=== PATIENT | male | born 1960 | race Caucasian/White ===

== ENCOUNTER 2018-10-12 08:49 | Emergency (ER) | payer OTHER, SELFPAY ==
[2018-10-12] VITALS (14 sets, daily range): BP systolic 106–130; BP diastolic 65–99; PULSE 78–114; RESP 11–18; TEMP 36.6–36.8; O2SAT 92–98; BMI 32.9
--- NOTE | 2018-10-12 09:11 | ED.CHESTPAIN ---
HPI - Chest Pain General Chief Complaint: Chest Pain Stated Complaint: Pain in chest/back Time Seen by Provider: 10/12/18 09:10 Source: patient Mode of arrival: ambulatory Limitations: no limitations History of Present Illness HPI narrative: The patient is a 58-year-old male who presents with chest pain off and on for the last 4 days. It comes and goes radiates through to his back to between his scapulas. He notices it with exertion and rest. It lasts for 30 minutes at a time. He denies any dyspnea with exertion. He currently has no pain. He was seen evaluated by PCP earlier this week thought it might be acid reflux. Decided to treat for acid reflux he has no follow-up scheduled. He says it is not getting any better Related Data Home Medications Medication Instructions Recorded Confirmed aspirin [Aspirin Low Dose] PO QAM 10/12/18 Previous Rx's Medication Instructions Recorded atorvastatin 20 mg tablet 20 mg PO HS #90 tab 12/03/17 chlorthalidone 25 mg tablet 25 mg PO QDAY #90 tab 12/03/17 lisinopril 40 mg tablet 40 mg PO QAM #90 tab 12/03/17 Allergies Allergy/AdvReac Type Severity Reaction Status Date / Time amoxicillin [AMOXICILLIN] Allergy Intermediate RASH AND Verified 10/12/18 11:27 LIGHT HEADED Penicillins [PENICILLINS] Allergy Unknown Verified 10/12/18 11:27 Sulfa (Sulfonamide Allergy Unknown Verified 10/12/18 11:27 Antibiotics) [SULFA (SULFONAMIDE ANTIBIOTICS)] Review of Systems Review of Systems GENERAL: Denies chills, fatigue, malaise, fever, sweats, travel HEENT: Denies sinus pain, ear pain, sore throat, difficulty swallowing, neck pain RESPIRATORY: Denies dyspnea, cough, wheezing, hemoptysis, sputum. CARDIOVASCULAR: See HPI GASTROINTESTINAL: Denies nausea, vomiting, abdominal pain, diarrhea, constipation, melena. : Denies dysuria, frequency, incontinence, hematuria, urinary retention, flank pain. MUSCULOSKELETAL: Denies weakness, joint pain, or bony pain SKIN: No rash, no erythema, no pruritus NEUROLOGIC: Denies weakness, dizziness, headache, numbness, change in speech, confusion PSYCHIATRIC: No concerning psychosocial issues. 12 point review of systems is negative except for those stated above and HPI [facility] Medical History Hyperlipidemia (Acute) Hypertension (Acute) Family History (Updated 08/24/14 @ 00:00 by MOE Gonzalez) Father Age: 74 CAD (coronary artery disease) Hyperlipidemia Hypertension Sister Hypertension Hyperlipidemia Social History Smoking Status: Former smoker Family History Father Age: 74 CAD (coronary artery disease) Hyperlipidemia Hypertension Sister Hypertension Hyperlipidemia Social History Smoking Status: Former smoker Exam Initial Vital Signs Initial Vital Signs: Vital Signs Temperature 97.9 F 10/12/18 08:53 Pulse Rate 114 H 10/12/18 08:53 Respiratory Rate 15 10/12/18 08:53 Blood Pressure 129/91 H 10/12/18 08:53 Pulse Oximetry 94 10/12/18 08:53 GENERAL: Well-appearing, well-nourished and in no acute distress. HEENT: Head atraumatic,EOMI, pupils reactive, face symmetric, moist mucous membranes CARDIOVASCULAR: Regular rate and rhythm without murmurs, rubs or gallops. RESPIRATORY: Breath sounds equal bilaterally, no wheezes rales or rhonchi. ABDOMEN: Soft, nontender. Normoactive bowel sounds all 4 quadrants. No guarding or rebound. : No CVA tenderness EXTREMITIES: Normal range of motion, no clubbing or edema. Neurovascularly intact NEUROLOGICAL: Alert and oriented x4.Normal gait and speech. Cranial nerves II through XII grossly intact. Good [id number], good [id number], strength equal bilaterally, no dysarthria or aphasia, sensation in tact to soft touch bilaterally, no visual changes, no facial droop SKIN: Warm, dry, no laceration, no petechiae, no rashes or lesions. Course Orders Ordered: ED Orders 10/12/18 09:16 Complete Blood Count AUTO DIFF Stat Comprehensive Metabolic Panel Stat Lipase Stat Troponin & CK Cardiac Panel Stat 10/12/18 09:18 CT chest abd pel wwo con Stat XR chest 1V Stat EKG-12 Lead Stat 10/12/18 09:39 EKG-12 Lead Stat 10/12/18 12:20 Troponin I Stat Discontinued Medications Aspirin (Aspirin Chew) 243 mg PO NOW ONE Stop: 10/12/18 09:19 Last Admin: 10/12/18 09:40 Dose: 243 mg Atorvastatin Calcium (Lipitor) 80 mg PO NOW ONE Stop: 10/12/18 11:03 Last Admin: 10/12/18 11:22 Dose: 60 mg Enoxaparin Sodium (Lovenox) 100 mg 1 mg/kg (100 mg) SUBCUT NOW ONE Stop: 10/12/18 10:16 Last Admin: 10/12/18 10:25 Dose: 100 mg Sodium Chloride (Normal Saline 0.9%) 1,000 mls @ 150 mls/hr IV CONT SAQIB Last Infusion: 10/12/18 16:08 Dose: 0 mls/hr Admin: 10/12/18 09:40 Dose: 150 mls/hr Metoprolol Succinate (Toprol Xl) 25 mg PO NOW ONE Stop: 10/12/18 11:03 Last Admin: 10/12/18 11:21 Dose: 25 mg Consultations Consultation #1: Dr. Friedman, cardiology at [facility] recommends on high-dose statin and beta-jax and to admit to Internal Medicine. Time: 11:03 Consultation #2: Dr. Moreno, internal Medicine at [facility] happily accepts patient. Time: 11:03 Vital Signs - 8 hr 10/12/18 08:53 10/12/18 08:58 10/12/18 09:50 Temperature 97.9 F 97.9 F Pulse Rate 114 H 104 H 102 H Respiratory Rate 15 17 18 Blood Pressure 129/91 H Blood Pressure [Left Arm] 116/81 Blood Pressure [Right Arm] 129/91 H Pulse Oximetry 94 94 95 10/12/18 10:39 10/12/18 11:21 10/12/18 11:32 Temperature Pulse Rate 107 H 94 H 91 H Respiratory Rate 11 L 18 Blood Pressure 130/99 H Blood Pressure [Left Arm] 109/65 106/72 Blood Pressure [Right Arm] Pulse Oximetry 94 96 10/12/18 12:25 10/12/18 12:30 10/12/18 12:49 Temperature Pulse Rate 92 H 88 94 H Respiratory Rate 18 16 Blood Pressure 120/88 Blood Pressure [Left Arm] 120/88 Blood Pressure [Right Arm] Pulse Oximetry 98 93 10/12/18 13:30 10/12/18 14:00 10/12/18 14:30 Temperature 98.2 F Pulse Rate 81 79 78 Respiratory Rate 11 L 11 L Blood Pressure Blood Pressure [Left Arm] 118/84 113/85 Blood Pressure [Right Arm] 113/85 Pulse Oximetry 93 94 92 10/12/18 15:02 10/12/18 15:33 Temperature Pulse Rate 82 79 Respiratory Rate 12 13 Blood Pressure Blood Pressure [Left Arm] 110/71 121/87 Blood Pressure [Right Arm] Pulse Oximetry 96 93 MDM - Chest Pain Lab Data Attestation: I reviewed the patient's lab results. Result diagrams: 10/12/18 09:16 10/12/18 09:16 Lab Results 10/12/18 10/12/18 10/12/18 Range/Units 09:16 09:16 12:20 WBC 7.1 (4.5-11.0) X10^3/uL RBC 5.20 (4.5-5.9) X10^6/uL Hgb 15.5 (13.5-17.5) g/dL Hct 45.4 (41-53) % MCV 87.3 (80-100) fL MCH 29.9 (26-34) PG MCHC 34.2 (30-36) % RDW 13.4 (11.6-14.8) % Plt Count 282 (150-400) X10^3/uL Neut % (Auto) 67.5 (50-75) % Lymph % (Auto) 20.4 L (25-40) % Keith % (Auto) 8.1 (3-14) % Eos % (Auto) 3.1 (2-4) % Baso % (Auto) 0.9 (0-2) % Neut # (Auto) 4800 (8418-0766) /uL Lymph # (Auto) 1400 (5201-8345) /uL Keith # (Auto) 600 (0-900) /uL Eos # (Auto) 200 (0-450) /uL Baso # (Auto) 100 (0-100) /uL Sodium 138 (137-145) mmol/L Potassium 3.8 (3.4-5.1) mmol/L Chloride 99 (98-107) mmol/L Carbon Dioxide 27 (22-32) mmol/L BUN 18 (9-20) mg/dL Creatinine 1.00 (0.66-1.25) mg/dL Estimated GFR > 60.0 (>60) mL/min BUN/Creatinine Ratio 18.0 (6-22) Glucose 123 H (70-100) mg/dL Calcium 9.1 (8.4-10.2) mg/dL Total Bilirubin 1.0 (0.2-1.3) mg/dL AST 20 (17-59) IU/L ALT 33 (21-72) IU/L Alkaline Phosphatase 56 (38-126) U/L Total Creatine Kinase 60 (55-170) U/L CK-MB (CK-2) TNP CK-MB (CK-2) Rel Index TNP Troponin I 0.133 H* 0.156 H* (0.01-0.034) ng/mL Total Protein 7.6 (6.3-8.2) g/dL Albumin 4.4 (3.5-5.0) g/dL Globulin 3.2 (1.7-4.1) g/dL Albumin/Globulin Ratio 1.4 (1.0-2.8) Lipase 33 (23-300) U/L Urine Dip Bedside Urine Glucose Negative Bedside Urine Bilirubin - Negative Bedside Urine Ketone - Negative Urine Specific [place] 1.010 Bedside Urine Occult Blood +/- Bedside Urine pH 8.0 Bedside Urine Protein - Negative Bedside Urine Urobilinogen - Negative Bedside Urine Nitrite - Negative Bedside Urine Leukocytes - Negative Esterase Imaging Data Chest x-ray: Radiologist's impression: PROCEDURE: XR CHEST 1V INDICATIONS: chest pain TECHNIQUE: One view of the chest was acquired. COMPARISON: None. FINDINGS: Surgical changes and devices: None. Lungs and pleura: Lungs are clear. No pleural effusions or pneumothorax. Mediastinum: Mediastinal contours appear normal. Heart size is normal. Bones and chest wall: No suspicious bony lesions. Overlying soft tissues appear unremarkable. IMPRESSION: No evidence acute pulmonary process. Dictated by: Bin Arora M.D. on 10/12/2018 at 9:41 CT Angio chest/ab/pelvis: Radiologist's impression: PROCEDURE: CT ANGIO CHEST ABDOMEN PELVIS INDICATIONS: dissection protocol, chest pain TECHNIQUE: Precontrast 5 mm thick sections acquired from the lung apices to the iliac crests. After the administration of intravenous contrast, 2.5 mm thick sections again acquired from the lung apices to the iliac crests. Maximum intensity projection (MIP) oblique sagittal and coronal reformats were then acquired. For radiation dose reduction, the following was used: automated exposure control. COMPARISON: None. FINDINGS: Image quality: Excellent. AORTA and its attachments: The thoracic aorta is of normal caliber without dissection. There is classic 3 vessel arch anatomy. The great vessel origins are widely patent. The abdominal aorta is of normal caliber without dissection. There is mild atherosclerotic plaquing. The SMA, celiac, and 2 bilateral renal arteries are widely patent. The RANDALL is patent. The common iliac arteries and external iliac arteries are widely patent. CHEST: Lungs and pleura: No acute airspace opacities. No pleural effusions or pneumothorax. Central and peripheral airways are patent and normal in caliber. No pulmonary emboli identified. There is a 3 mm subpleural right upper lobe nodule on image 29/6. There is a 3 mm subpleural pulmonary nodule in the extreme left lung base on image 72/6. Mediastinum: Heart size is normal. No pericardial effusion. No mediastinal or hilar adenopathy by size criteria. Central pulmonary arteries are normal in size. Esophagus is normal in caliber. No hiatal hernias. Bones and chest wall: No axillary adenopathy by size criteria. Thyroid gland is unremarkable. No suspicious bony lesions. No vertebral body compression fractures. ABDOMEN: Vasculature: Celiac trunk and mesenteric arteries are patent. Renal arteries are also patent. Solid organs: Liver is normal in size and enhancement. Gallbladder is unremarkable. Biliary system is non dilated. Pancreas enhances normally. Spleen is normal in size and enhancement. No adrenal nodules. Both kidneys are normal in size and enhancement, without hydronephrosis. Peritoneum and bowel: No free fluid or air. Bowel loops are normal in caliber and wall thickness. Sigmoid diverticulosis without evidence of diverticulitis. Nodes and vessels: No retroperitoneal or mesenteric adenopathy by size criteria. Inferior vena cava is normal in morphology. Miscellaneous: No ventral hernias. PELVIS: Genitourinary: Bladder wall thickness is normal. Miscellaneous: Bilateral inguinal hernias containing fat. No ventral hernias. Bones: No suspicious bony lesions. No vertebral body compression fractures. IMPRESSION: 1. Mild atherosclerotic plaque, otherwise unremarkable aorta. No dissection or aneurysm. 2. Sigmoid diverticulosis. 3. Bilateral inguinal hernias containing fat. Dictated by: Bin Arora M.D. on 10/12/2018 at 10:20 ECG Data Attestation: I personally reviewed and interpreted this ECG as follows: Prior ECG tracings: not available for review Interpretation: Sinus tachycardia rate [address] changes no T-wave inversions Sinus rhythm rate 100 II prior no changes Core Measures AMI core measures followed: Yes MDM Narrative Medical decision making narrative: Patient's symptoms are highly concerning for acute coronary syndrome. Possible dissection with radiation to the back and the scapulas. A CTA was done to rule out any sort of dissection. Patient has not had any chest discomfort while in the ED. The patient troponin is positive, patient will need to be transferred to facility with cardiology and further testing. [facility] is close to all cardiology patients, [facility] in [place] also closed. [facility] open and happily accepts. Critical Care Time Critical Care Time: Yes Total Critical Care Time: 30 Attestation: The high probability of a clinically significant, sudden or life threatening deterioration of the cardiovascular system(s) required my full and direct attention, intervention and personal management. The aggregate critical care time was 30 minutes. This time is in addition to time spent performing reported procedures but includes the following: x Data Review and interpretation x Patient assessment and monitoring of vital signs x Documentation x Medication orders and management Discharge Plan Departure Patient Disposition: [facility] Clinical Impression: Non-ST elevated myocardial infarction Discharge Date/Time: 10/12/18 16:10 Interventions: ED Discharge Assessment Last Done: 10/12/18 16:09 Prescriptions: No Action chlorthalidone 25 mg tablet 25 mg PO QDAY Qty: 90 RF: 3 atorvastatin [Lipitor] 20 mg tablet 20 mg PO HS Qty: 90 RF: 3 lisinopril [Zestril] 40 mg tablet 40 mg PO QAM Qty: 90 RF: 3 aspirin [Aspirin Low Dose] 81 mg Tablet,Delayed Release (Dr/Ec) PO QAM RF: 0
--- NOTE | 2018-10-12 09:18 | DI.CT.S_ITS ---
PROCEDURE: CT ANGIO CHEST ABDOMEN PELVIS INDICATIONS: dissection protocol, chest pain TECHNIQUE: Precontrast 5 mm thick sections acquired from the lung apices to the iliac crests. After the administration of intravenous contrast, 2.5 mm thick sections again acquired from the lung apices to the iliac crests. Maximum intensity projection (MIP) oblique sagittal and coronal reformats were then acquired. For radiation dose reduction, the following was used: automated exposure control. COMPARISON: None. FINDINGS: Image quality: Excellent. AORTA and its attachments: The thoracic aorta is of normal caliber without dissection. There is classic 3 vessel arch anatomy. The great vessel origins are widely patent. The abdominal aorta is of normal caliber without dissection. There is mild atherosclerotic plaquing. The SMA, celiac, and 2 bilateral renal arteries are widely patent. The RANDALL is patent. The common iliac arteries and external iliac arteries are widely patent. CHEST: Lungs and pleura: No acute airspace opacities. No pleural effusions or pneumothorax. Central and peripheral airways are patent and normal in caliber. No pulmonary emboli identified. There is a 3 mm subpleural right upper lobe nodule on image 29/6. There is a 3 mm subpleural pulmonary nodule in the extreme left lung base on image 72/6. Mediastinum: Heart size is normal. No pericardial effusion. No mediastinal or hilar adenopathy by size criteria. Central pulmonary arteries are normal in size. Esophagus is normal in caliber. No hiatal hernias. Bones and chest wall: No axillary adenopathy by size criteria. Thyroid gland is unremarkable. No suspicious bony lesions. No vertebral body compression fractures. ABDOMEN: Vasculature: Celiac trunk and mesenteric arteries are patent. Renal arteries are also patent. Solid organs: Liver is normal in size and enhancement. Gallbladder is unremarkable. Biliary system is non dilated. Pancreas enhances normally. Spleen is normal in size and enhancement. No adrenal nodules. Both kidneys are normal in size and enhancement, without hydronephrosis. Peritoneum and bowel: No free fluid or air. Bowel loops are normal in caliber and wall thickness. Sigmoid diverticulosis without evidence of diverticulitis. Nodes and vessels: No retroperitoneal or mesenteric adenopathy by size criteria. Inferior vena cava is normal in morphology. Miscellaneous: No ventral hernias. PELVIS: Genitourinary: Bladder wall thickness is normal. Miscellaneous: Bilateral inguinal hernias containing fat. No ventral hernias. Bones: No suspicious bony lesions. No vertebral body compression fractures. IMPRESSION: 1. Mild atherosclerotic plaque, otherwise unremarkable aorta. No dissection or aneurysm. 2. Sigmoid diverticulosis. 3. Bilateral inguinal hernias containing fat. Dictated by: Bin Arora M.D. on 10/12/2018 at 10:20 Approved by: Bin Arora M.D. on 10/12/2018 at 10:28
--- NOTE | 2018-10-12 09:18 | DI.RAD.S_ITS ---
PROCEDURE: XR CHEST 1V INDICATIONS: chest pain TECHNIQUE: One view of the chest was acquired. COMPARISON: None. FINDINGS: Surgical changes and devices: None. Lungs and pleura: Lungs are clear. No pleural effusions or pneumothorax. Mediastinum: Mediastinal contours appear normal. Heart size is normal. Bones and chest wall: No suspicious bony lesions. Overlying soft tissues appear unremarkable. IMPRESSION: No evidence acute pulmonary process. Dictated by: Bni Arora M.D. on 10/12/2018 at 9:41 Approved by: Bin Arora M.D. on 10/12/2018 at 9:42
[2018-10-12 09:24] LABS: Add Manual Diff / Slide Review NO; Basophils Absolute Auto 100 /uL (0-100); Basophils Percent Auto 0.9 % (0-2); Eosinophils Absolute Auto 200 /uL (0-450); Eosinophils Percent Auto 3.1 % (2-4); Hematocrit 45.4 % (41-53); Hemoglobin 15.5 g/dL (13.5-17.5); Lymphocytes Absolute Auto 1400 /uL (1100-4500); Lymphocytes Percent Auto 20.4 % (25-40); Mean Corpuscular HGB Conc 34.2 % (30-36); Mean Corpuscular Hemoglobin 29.9 PG (26-34); Mean Corpuscular Volume 87.3 fL (80-100); Monocytes Absolute Auto 600 /uL (0-900); Monocytes Percent Auto 8.1 % (3-14); Neutrophils Absolute Auto 4800 /uL (1500-7000); Neutrophils Percent Auto 67.5 % (50-75); Platelet Count 282 X10^3/uL (150-400); Red Cell Distribution Width 13.4 % (11.6-14.8); White Blood Cell Count 7.1 X10^3/uL (4.5-11.0)
[2018-10-12 09:37] LABS: Alanine Aminotransferase 33 IU/L (21-72); Albumin 4.4 g/dL (3.5-5.0); Albumin Globulin Ratio 1.4 (1.0-2.8); Alkaline Phosphatase 56 U/L (38-126); Aspartate Aminotransferase 20 IU/L (17-59); Blood Urea Nitrogen 18 mg/dL (9-20); Calcium 9.1 mg/dL (8.4-10.2); Carbon Dioxide 27 mmol/L (22-32); Chloride 99 mmol/L (98-107); Creatine Kinase 60 U/L (55-170); Estimated Glomerular Filt Rate > 60.0 mL/min (>60); Globulin 3.2 g/dL (1.7-4.1); Glucose 123 mg/dL (70-100); HEMOLYSIS < 15 (0-50); Lipase 33 U/L (23-300); Potassium 3.8 mmol/L (3.4-5.1); Sodium 138 mmol/L (137-145); Total Protein 7.6 g/dL (6.3-8.2)
[2018-10-12] MEDS: ASPIRIN 81 MG TAB 243 MG PO (09:40)
[2018-10-12] MEDS: SODIUM CHLORIDE 0.9% 1,000 ML 150 ML IV (09:40)
[2018-10-12 10:06] LABS: Troponin I 0.133 ng/mL (0.01-0.034)
[2018-10-12] MEDS: ENOXAPARIN 100 MG/ML SYRINGE SUBCUT (10:25)
[2018-10-12] MEDS: METOPROLOL ER 25 MG TABLET PO (11:21)
[2018-10-12] MEDS: ATORVASTATIN 20 MG TABLET 80 MG PO (11:22)
[2018-10-12 13:24] LABS: Troponin I 0.156 ng/mL (0.01-0.034)
== END 2018-10-12 16:10 | disposition short-term general hospital (02) ==
PROVIDERS: Emergency Provider Emergency Medicine
DX: I21.4 Non-ST elevation (NSTEMI) myocardial infarction (principal)
CPT/HCPCS: 36415; 36591; 71045; 71270; 74178; 80053; 81003; 82550; 83690; 84484; 85025; 93005; 96360; 96361; 96372; 99285; J1650; Q9967

== ENCOUNTER → 2019-07-02 06:55 | Outpatient (CLI) | payer OTHER, SELFPAY ==
[2019-07-02 08:37] LABS: Add Manual Diff / Slide Review NO; Basophils Absolute Auto 100 /uL (0-100); Basophils Percent Auto 1.1 % (0-2); Eosinophils Absolute Auto 500 /uL (0-450); Eosinophils Percent Auto 9.1 % (2-4); Hemoglobin 14.9 g/dL (13.5-17.5); Lymphocytes Absolute Auto 900 /uL (1100-4500); Lymphocytes Percent Auto 17.9 % (25-40); Mean Corpuscular HGB Conc 33.2 % (30-36); Mean Corpuscular Hemoglobin 29.8 PG (26-34); Mean Corpuscular Volume 89.7 fL (80-100); Monocytes Absolute Auto 600 /uL (0-900); Monocytes Percent Auto 11.1 % (3-14); Neutrophils Absolute Auto 3100 /uL (1500-7000); Neutrophils Percent Auto 60.8 % (50-75); Platelet Count 257 X10^3/uL (150-400); Red Blood Cell Count 5.02 X10^6/uL (4.5-5.9); Red Cell Distribution Width 13.7 % (11.6-14.8); White Blood Cell Count 5.1 X10^3/uL (4.5-11.0)
[2019-07-02 08:59] LABS: Alanine Aminotransferase 29 IU/L (<50); Albumin 4.1 g/dL (3.5-5.0); Albumin Globulin Ratio 1.4 (1.0-2.8); Alkaline Phosphatase 52 U/L (38-126); Aspartate Aminotransferase 23 IU/L (17-59); BUN Creatinine Ratio 18.9 (6-22); Bilirubin Total 0.8 mg/dL (0.2-1.3); Blood Urea Nitrogen 17 mg/dL (9-20); Calcium 9.2 mg/dL (8.4-10.2); Carbon Dioxide 30 mmol/L (22-32); Chloride 104 mmol/L (98-107); Cholesterol 178 mg/dL (140-199); Estimated Glomerular Filt Rate > 60.0 mL/min (>60); Globulin 2.9 g/dL (1.7-4.1); Glucose 127 mg/dL (70-100); HDL Cholesterol 48 mg/dL (40-60); HEMOLYSIS < 15 (0-50); LDL Cholesterol Calculated 111 mg/dL (<100); Potassium 4.9 mmol/L (3.4-5.1); Sodium 142 mmol/L (137-145); Triglycerides 95 mg/dL (35-150)
[2019-07-02 09:26] LABS: Prostate Specific Antigen Scrn 0.285 ng/mL (0.1-4.0); Thyroid Stimulating Hormone 1.89 uIU/mL (0.47-4.68)
== END ==
PROVIDERS: PCP Student in an Organized Health Care Education/Training Program; Visit Provider Student in an Organized Health Care Education/Training Program
DX: Z00.00 Encounter for general adult medical examination without abnormal findings (principal); E78.5 Hyperlipidemia, unspecified; I10 Essential (primary) hypertension; Z12.5 Encounter for screening for malignant neoplasm of prostate
CPT/HCPCS: 36415; 80053; 80061; 84443; 85025; G0103

== ENCOUNTER 2019-07-24 08:30 | Outpatient (RCR) | payer OTHER, SELFPAY | END 2019-08-04 10:40 | LOC: CAR 08:30 | PROVIDERS: Visit Provider Internal Medicine Cardiovascular Disease | DX: Z95.5 Presence of coronary angioplasty implant and graft (principal) | CPT/HCPCS: 93797; 93798 ==

== ENCOUNTER → 2022-08-16 07:39 | Outpatient (CLI) | payer OTHER, SELFPAY ==
--- NOTE | 2022-08-16 07:47 | DI.CT.S_ITS ---
PROCEDURE: CT KIDNEY URETER BLADDER (KUB) INDICATIONS: Left lower quadrant pain TECHNIQUE: Axial sections were acquired from the lung bases to the pubic symphysis. Coronal and sagittal reformats were performed. For radiation dose reduction, the following was used: automated exposure control, adjustment of mA and/or kV according to patient size. COMPARISON: None. FINDINGS: Image quality: Excellent. Lung bases: Unremarkable. Heart: No significant findings. URINARY: Right Kidney: No stones or hydronephrosis. Right Ureter: No hydroureter. Left Kidney: No stones or hydronephrosis. Left Ureter: No hydroureter. Bladder: Normal wall thickness. No stones. ABDOMEN: Liver: Unremarkable. Gallbladder: Unremarkable. Biliary ducts: Unremarkable. Pancreas: Unremarkable. Spleen: Unremarkable. Adrenal Glands: Unremarkable. Stomach and Bowel: Stomach, small bowel loops, and colon are unremarkable. The appendix is thin walled and gas filled. There are scattered sigmoid diverticula. No evidence for diverticulitis. Peritoneum: No abnormal intraperitoneal fluid. No free air. Ventral Wall: No hernia. Abdominal Nodes: No enlarged retroperitoneal or mesenteric lymph nodes. Vessels: Aorta and inferior vena cava are normal in size. PELVIS: Pelvic Organs: Unremarkable. Pelvic Nodes: Unremarkable. Miscellaneous: There are moderate-sized bilateral fat containing inguinal hernias. Bones: Unremarkable. IMPRESSION: 1. No hydronephrosis, nephrolithiasis, hydroureter, or ureterolithiasis. 2. No acute intra-abdominal findings. Normal appendix. Diverticulosis. No acute diverticulitis. Dictated by: Lennie Robert M.D. on 08/16/2022 at 9:54 Approved by: Lennie Robert M.D. on 08/16/2022 at 10:06
== END ==
PROVIDERS: PCP Student in an Organized Health Care Education/Training Program; Referring Provider Family Medicine; Visit Provider Family Medicine
DX: R10.32 Left lower quadrant pain (principal); K40.20 Bilateral inguinal hernia, without obstruction or gangrene, not specified as recurrent; K57.30 Diverticulosis of large intestine without perforation or abscess without bleeding
CPT/HCPCS: 74176

== ENCOUNTER → 2025-02-18 10:36 | Outpatient (CLI) | payer OTHER, SELFPAY ==
--- NOTE | 2025-02-18 | DI.RAD.S_ITS ---
PROCEDURE: XR FOOT 2V WB RIGHT INDICATIONS: Acute right foot pain TECHNIQUE: 3 weight-bearing views acquired of the foot. COMPARISON: None. FINDINGS: Bones: There are no osseous abnormalities Joints: The joint spaces are normal in width and alignment without arthritic change. Soft tissues: Marked diffuse soft tissue swelling IMPRESSION: Marked diffuse soft swelling - edema or inflammation Dictated by: Harpal Gillis M.D. on 02/19/2025 at 10:50 Approved by: Harpal Gillis M.D. on 02/19/2025 at 10:51
== END ==
PROVIDERS: PCP Student in an Organized Health Care Education/Training Program; Referring Provider Family Medicine; Visit Provider Family Medicine
DX: M79.671 Pain in right foot (principal); M79.89 Other specified soft tissue disorders
CPT/HCPCS: 73620